=== PATIENT | female | born 1990 | race African-American/Black ===

== ENCOUNTER 2017-01-20 14:24 | Emergency (ER) | payer OTHER ==
--- NOTE | ~2017-01-20 | US98 ---
[facility] A Service of [facility] & [facility] RADIOLOGY TEXT RESULTS PATIENT: ZHANG COLLAZO LOCATION: CFT[facility] : 90 UNIT #: [id number] AGE: [address]: Alcira Bourne SEX: F ORDER DR: [id number] [facility] [address] [place], [place] [address] [id number] MR#: [id number] Acc #: [id number] NAME: ZHANG COLLAZO. : 1990 SEX: F STUDY DATE/TIME: 01/20/2017 15:25 UNIT: CFTX ROOM: STUDY DESCRIPTION: US Pelvic Non-OB Complete Attending Physician: Alcira Bourne Pa-C Ordering Physician: Ed Doctor [id number] [facility] Primary Care Physician: Primary Care Physician No MEDICAL IMAGING REPORT This report is preliminary unless electronic signature is present EXAM Pelvic ultrasound, 01/20/2017 HISTORY Pelvic pain for 1.5 years since Essure coil placement. FINDINGS Real-time ultrasonography of the pelvic structures performed transabdominally and transvaginally. Transvaginal imaging utilized for better visualization of uterine and adnexal structures. Prior pelvic ultrasound performed 01/03/2015 was performed during the patient's . At this time, the uterus measures approximately 9.71 cm x 4.26 cm x 5.93 cm. The endometrial echo complex is homogeneous and measures approximately 1.0-3.0 mm in thickness. Normal value. No suspicious focal myometrial abnormality is seen. There is a somewhat linear echogenic focus at the superior right aspect of the uterus. Given the linear configuration, this echogenic focus probably reflects a portion of the patient's Essure fallopian tube occlusion device within the intramural portion of the fallopian tube. This could be further evaluated with CT. The possible Essure device may extend just into the fundal endometrial canal. This is somewhat unclear. The right ovary measures 2.39 cm x 1.98 cm x 2.24 cm. Small follicular cysts. Arterial and venous flow noted. There is no free fluid in the pelvis. The left ovary measures 2.75 cm x 3.52 cm x 2.13 cm. Follicular ovarian cyst noted. No finding to clearly demonstrate the left Essure device. IMPRESSION 1. In the superior right uterine myometrium there is a linear echogenic focus. Given patient's history and the linear configuration of this finding, it may represent a portion of the patient's Essure fallopian tube occlusion device located within the intramural segment of the fallopian tube. I cannot entirely exclude slight extension into the superior right fundal endometrial space. This could best be further [facility] A Service of [facility] RADIOLOGY TEXT RESULTS PATIENT: ZHANG COLLAZO LOCATION: [facility] : 90 UNIT #: [id number] AGE: [address]: Alcira Bourne SEX: F ORDER DR: evaluated with CT if it would assist in management. The uterine myometrium and endometrium are otherwise unremarkable. 2. The bilateral ovaries are normal in appearance with arterial and venous flow noted bilaterally. There are small follicular ovarian cysts. 3. There is no free fluid in the pelvis. 4. No visualization of a left Essure device. Dictated by... Wiliam Wharton M.D. THIS IS AN ELECTRONICALLY VERIFIED REPORT Wiliam Wharton M.D. at 01/21/2017 10:21 AM Juaquin TD: 01/21/2017 08:29 JOB #: [id number] MEDICAL IMAGING REPORT Page 1 of 1 COPY
[~2017-01-20 14:24] MED LIST: BENADRYL ALLERG25 MG PO; BENADRYL25 M3 PO; EPIPEN0.3 MG/0.1 IM; FAMOTIDINE PO; FLEXERIL10 MG PO; IRON325 ( 651 PO; LORTAB 7.51 TAB PO; MACROBID100 M1; MACROBID100 MG PO; MEDROL4 MG/DOSE- PO; NAPROSYN500 MG PO; NAPROXEN PO; NEXIUM PO; ORUDIS75 M1 DOB; OVRAL PO; PANTOPRAZOLE SO40 MG PO; PREDNISONE PO; PRILOSEC20 MG PO; VOLTAREN75 MG PO
== END 2017-01-20 17:07 | disposition home or self-care (01) ==
LOC: CED 14:24 → CFTX 14:24
DX: R10.2 Pelvic and perineal pain (principal); G89.29 Other chronic pain; D64.9 Anemia, unspecified; Z90.49 Acquired absence of other specified parts of digestive tract; F17.200 Nicotine dependence, unspecified, uncomplicated; Z88.8 Allergy status to other drugs, medicaments and biological substances; Z91.013 Allergy to seafood; Z91.041 Radiographic dye allergy status
CPT/HCPCS: 76830; 76856; 99284